=== PATIENT | female | born 1970 | race African-American/Black ===

== ENCOUNTER 2016-09-16 08:55 | Emergency (ER) | payer OTHER ==
[~2016-09-16] VITALS: Ht 160 cm; Wt 101.5 kg
[2016-09-16 08:58] VITALS: BP 177/113; PULSE 73; RESP 16; TEMP 98; O2SAT 100
[2016-09-16] MEDS ORDERED: ACETAMINOPHEN 325 MG TAB PO ONE (09:15)
[2016-09-16] MEDS ORDERED: METH250T PO (09:15)
--- NOTE | 2016-09-16 09:17 | PD ---
HPI Chief Complaint: Injury Time Seen by Provider: 09:06 Travel History International Travel<30 days: No Contact w/Intl Traveler<30days: No Traveled to known affect area: No History of Present Illness HPI The patient is a 45-year-old [place] female who presents emergency department for left thumb pain. The patient states she had a trip and fall earlier today and landed on her left hand. The patient states her left thumb was displaced, and she placed it back, subsequently hearing a "pop ". Patient states the thumb appears normal now, however, there is swelling located over the base the left thumb as well as tenderness at the base of the left thumb with limited range of motion. The patient is right-hand dominant. The patient denies any numbness or tingling to the left hand and denies any pain of the left wrist, left elbow, or left clavicle. The patient thinks she had a dislocated thumb and placed it back in place. Symptoms are moderate, exacerbated after falling, and slightly alleviated after placing the thumb back in place, according to her report. PFSH Past Medical History Hx Anticoagulant Therapy: No Cardiovascular Problems: Yes (HTN) Diabetes: No Hypertension: Yes Tetanus Vaccination: > 5 Years Influenza Vaccination: Yes ?: Unknown Social History Alcohol Use: No Tobacco Use: No Substance Use: No Allergies-Medications (Allergen,Severity, Reaction): Coded Allergies: Penicillin (Verified Allergy, Mild, hives, 09/16/16) Reported Meds & Prescriptions Reported Meds & Active Scripts Active Reported Methyldopa 250 Mg Tab 250 Mg PO DAILY Review of Systems Musculoskeletal: Positive: Limited ROM, Edema, Pain Skin: No Other (no abrasions or lacerations) Neurologic: No: Paresthesia, Sensory Disturbance Physical Exam Narrative GENERAL: Awake, alert, very pleasant 45 year-old female who appears her stated age and is in no acute respiratory distress. SKIN: Warm and dry. HEAD: Atraumatic. Normocephalic. EYES: No injection or drainage. Neck: Well-healed scar on the right aspect of the neck. MUSCULOSKELETAL: Edema noted at the base of the right thumb with tenderness at the base of the right thumb. Limited ability to oppose the thumb as well as flex, extend, abduct, and extend. Patient has full ability to flex and extend at the MCP, PIP, DIP of digits 2 through 5. Patient is able fully flex and extend the left wrist. No tenderness over the anatomic snuffbox. The patient' s able supinate and pronate the left forearm as well as extend and flex left elbow without difficulty. No tenderness over the left clavicle. NEUROLOGICAL: Awake and alert. No obvious cranial nerve deficits. Motor grossly within normal limits. Normal speech. Sensation is intact to the median , radial, and ulnar distribution of the left hand. PSYCHIATRIC: Appropriate mood and affect; insight and judgment normal. Data Data Last Documented VS Vital Signs Date Time Temp Pulse Resp B/P Pulse Ox O2 Delivery O2 Flow Rate FiO2 09/16/16 09:06 16 100 Room Air 09/16/16 08:58 98.0 73 177/113 Orders Finger ([id number]) (09/16/16 ) Acetaminophen (Tylenol) (09/16/16 09:15) MDM Medical Decision Making Medical Screen Exam Complete: Yes Emergency Medical Condition: Yes Medical Record Reviewed: Yes Interpretation(s) X-ray of the left thumb reveals no evidence of acute fracture. Differential Diagnosis Differential diagnosis includes sprain, strain, dislocation, reduced dislocation , fracture. Narrative Course X-ray of the left thumb was obtained. The patient was administered Tylenol 325 mg orally. X-ray was negative for fracture. According to the patient's report , she had a dislocation and reduced it, therefore, patient will be placed in a thumb spica. The patient is advised to follow-up with her primary physician for referral to orthopedist and/or hand surgeon. Return if symptoms worsen or progress. Diagnosis Primary Impression: Pain in thumb joint with movement of left hand Patient Instructions: General Instructions Additional Instructions: Thumb spica as directed. Follow-up with orthopedics and/or hand surgery. Return if symptoms worsen or progress. Med/Other Pt SpecificInfo: Prescription(s) given Scripts Hydrocodone-Acetaminophen ([place])5-325 mg Tab1 Tab PO Q6H PRN (PAIN) #15 TAB Ref 0 Prov:Pierce Salinas MD 09/16/16 Disposition: 01 DISCHARGE HOME Condition: Stable Pierce Salinas MD Sep 16, 2016 09:17
--- NOTE | 2016-09-16 10:23 | RADHPO ---
EXAM DATE/TIME: 09/16/2016 09:20 [facility] COMPARISON: No previous studies available for comparison. INDICATIONS : Left 1st digit pain post fall. MEDICAL HISTORY : Hypertension. SURGICAL HISTORY : None. ENCOUNTER: Initial ACUITY: 1 day PAIN SCORE: 7/10 LOCATION: Left first digit FINDINGS: Examination of the first digit of the left hand demonstrates no evidence of fracture or dislocation. No radiopaque foreign bodies are seen. The soft tissues are intact. CONCLUSION: 1. There is no evidence of acute fracture. Bacilio Wright MD on September 16, 2016 at 10:17 Board Certified Radiologist. This report was verified electronically.
[2016-09-16] MEDS ORDERED: NORC5TAB PO (10:29)
== END 2016-09-16 10:59 | disposition home or self-care (01) ==
LOC: PHED 08:55
DX: M79.645 Pain in left finger(s) (principal); I10 Essential (primary) hypertension; W19.XXXA Unspecified fall, initial encounter; Y99.8 Other external cause status
CPT/HCPCS: 73140; 99283; L3808

== ENCOUNTER 2016-09-16 14:36 | Emergency (ER) | payer OTHER ==
[~2016-09-16] VITALS: Ht 160 cm; Wt 102.8 kg
[~2016-09-16 14:36] MED LIST: METH250T PO; NORC5TAB PO
[2016-09-16 14:54] VITALS: BP 149/107; PULSE 68; RESP 16; TEMP 98; O2SAT 100
--- NOTE | 2016-09-16 15:08 | PD ---
HPI Chief Complaint: Injury Time Seen by Provider: 15:04 Travel History International Travel<30 days: No Contact w/Intl Traveler<30days: No Traveled to known affect area: No History of Present Illness HPI Patient is a 45-year-old female presenting with paresthesias in the left thumb. She was seen earlier this morning and reported that she fell and had a dislocation at the base of the thumb which she reduced. X-ray was negative for fracture or dislocation. Was noted to have reduced range of motion by previous provider. As she reports dislocation placed in a thumb spica splint. Then approximately one hour of bleeding with the splint patient again having paresthesias in the thumb. She feels like it is too tight on the base of the thumb. She has not taken any medications for pain yet. PFSH Past Medical History Hx Anticoagulant Therapy: No Cardiovascular Problems: Yes (HTN) Diabetes: No Diminished Hearing: No Hypertension: Yes Immunizations Current: Yes Tetanus Vaccination: > 5 Years Influenza Vaccination: Yes ?: Not Social History Alcohol Use: No Tobacco Use: No Substance Use: No Allergies-Medications (Allergen,Severity, Reaction): Coded Allergies: Penicillin (Verified Allergy, Mild, hives, 09/16/16) Reported Meds & Prescriptions Reported Meds & Active Scripts Active [place] (Hydrocodone-Acetaminophen) 5-325 mg Tab 1 Tab PO Q6H PRN Reported Methyldopa 250 Mg Tab 250 Mg PO DAILY Review of Systems General / Constitutional: No: Fever Musculoskeletal: Positive: Other (see the history of present illness) Neurologic: Positive: Paresthesia, Sensory Disturbance ("pins and needles "), No: Weakness, Focal Abnormalities Physical Exam Narrative GENERAL: Well-developed and well-nourished adult female in no acute distress. SKIN: Warm and dry. Good turgor without tenting. HEAD: Normocephalic. CARDIOVASCULAR: Capillary refill less than 2 seconds distal tip of all fingers of left hand. Thumb refills as quick as the other digits. After splint removed radial pulses 2+ bilaterally. RESPIRATORY: No distress or use of accessory muscles. MUSCULOSKELETAL: Thumb spica splint on the left upper extremity. Patient can move the tip of the left thumb. Remove splint and there is very minimal edema and ecchymosis at the base of the left thumb. No gait disturbances. Patient freely moving all four extremities spontaneously. Extremities without clubbing or cyanosis. No obvious deformities. NEUROLOGIC: CN II-XII grossly intact. Awake and alert. Motor grossly within normal limits. Sensation intact to the distal tip, radial and ulnar aspects of the left thumb. Normal speech. PSYCHIATRIC: Appropriate mood and affect; insight and judgment normal. Data Data Last Documented VS Vital Signs Date Time Temp Pulse Resp B/P Pulse Ox O2 Delivery O2 Flow Rate FiO2 09/16/16 14:54 98.0 68 16 149/107 100 Orders Splint Or Brace Apply/Monitor (09/16/16 15:08) MDM Medical Decision Making Medical Screen Exam Complete: Yes Emergency Medical Condition: Yes Differential Diagnosis Paresthesia versus neurovascular injury versus splint malfunction Narrative Course Patient is a 45-year-old female suffered injury to the left thumb earlier this morning. She was previously seen here, x-rays normal. By history the patient reports a dislocation. Provider placed her in a spica splint. Patient feels it is too tight on the base of the thumb and reports paresthesias in the thumb one hour after the splint was applied. She is neurovascular intact. Removal splint does show some swelling at the base of the thumb. Splint was reapplied. Patient has her pain medication and will follow up with Dr. Mcgowan on Monday as discussed previously.See discharge paperwork for further instructions. The plan was discussed with the patient who acknowledged their understanding and agreement. Reinforced the follow-up with primary care is critically important. Patient instructed on emergent conditions that should prompt return to ED. Diagnosis Primary Impression: Paresthesia Additional Impression: Pain in thumb joint with movement of left hand Additional Instructions: Keep splint in place until seen by Dr. Mcgowan next week Take medications as previously prescribed Your medications may cause drowsiness. Do not take with alcohol or sedatives. Do not operate a motor vehicle or heavy machinery while on medication. Return to the ED for any acute worsening of symptoms Disposition: 01 DISCHARGE HOME Condition: Stable Jorge Alberto Chávez III Sep 16, 2016 15:08
== END 2016-09-16 16:13 | disposition home or self-care (01) ==
LOC: PHEFT 14:36
DX: Z46.89 Encounter for fitting and adjustment of other specified devices (principal); R20.2 Paresthesia of skin; I10 Essential (primary) hypertension
CPT/HCPCS: 99282